=== PATIENT | female | born 1950 | race Caucasian/White ===

== ENCOUNTER 2020-08-03 17:08 | Emergency (ER) | payer OTHER ==
[~2020-08-03] VITALS: Ht 162.6 cm; Wt 99.8 kg
[2020-08-03 17:08] VITALS: BP_SYST 151
[2020-08-03] MEDS ORDERED: NACL 0.9% 1,000 ML IV ONE (17:30)
[2020-08-03] MEDS ORDERED: GLU500 PO (17:41)
[2020-08-03] MEDS ORDERED: OMEP20CA15 PO (17:41)
[2020-08-03] MEDS ORDERED: METO50TA7 PO (17:41)
[2020-08-03] MEDS ORDERED: PRO20 PO (17:41)
[2020-08-03] MEDS ORDERED: AMLO5TAB4 PO (17:41)
[2020-08-03] MEDS ORDERED: ACET1TAB23 PO (17:41)
[2020-08-03] MEDS ORDERED: DICL100G19 TP (17:41)
[2020-08-03] MEDS ORDERED: HYDR25TA4 PO (17:41)
[2020-08-03] MEDS ORDERED: LIP20 PO (17:41)
[2020-08-03 18:00] LABS: BILIRUBIN,URINE 1+ (NEGATIVE); BLOOD, URINE NEGATIVE (NEGATIVE); COLOR,URINE ORANGE (YELLOW); GLUCOSE,URINE NEGATIVE (NEGATIVE); KETONES,URINE TRACE (NEGATIVE); LEUKOCYTE ESTERASE ,URINE NEGATIVE (NEGATIVE); NITRITE, URINE NEGATIVE (NEGATIVE); PROTEIN URINE TRACE (NEGATIVE)
[2020-08-03 18:05] LABS: CLARITY/URINE HAZY (CLEAR)
[2020-08-03 18:16] LABS: BACTERIA,URINE FEW /HPF (None Seen); RBC,URINE 0-3 /HPF (0-3); WBC,URINE 0-3 /HPF (0-3)
[2020-08-03 18:17] LABS: HYALINE CASTS, URINE 0-10 /LPF (None Seen); MUCUS,URINE 1+ /LPF (None Seen)
[2020-08-03 18:26] LABS: BASOPHILS # (AUTO) 0.1 K/uL (0.0-0.2); BASOPHILS % (AUTO) 0.9 % (0.0-2.0); EOSINOPHILS # (AUTO) 0.5 K/uL (0.0-0.4); HEMATOCRIT 34.6 % (36-48); HEMOGLOBIN 11.8 g/dL (12.0-16.0); LYMPHOCYTES # (AUTO) 1.5 K/uL (1.0-5.5); LYMPHOCYTES % (AUTO) 12.3 % (20.5-51.5); MEAN CORPUSCULAR HEMOGLOBIN 31 pg (27-31); MEAN CORPUSCULAR HGB CONC 34 % (32-36); MEAN CORPUSCULAR VOLUME 90 fL (79.0-98.0); MONOCYTES % (AUTO) 8.4 % (1.7-9.3); NEUTROPHILS # (AUTO) 8.9 K/uL (1.8-7.7); NEUTROPHILS % (AUTO) 74.4 % (40.0-70.0); PLATELET COUNT (AUTO) 247 K/uL (130-430); RED BLOOD CELL COUNT(AUTO) 3.85 MIL/uL (4.2-6.2); WHITE BLOOD COUNT (AUTO) 11.9 K/uL (4.8-10.8)
[2020-08-03 18:37] LABS: ACETONE, SERUM NEGATIVE (NEGATIVE)
[2020-08-03 18:38] LABS: ANION GAP 12 (5-15); CALCIUM 8.8 mg/dL (8.4-11.0); CHLORIDE 95 mmol/L (98-107); CREATININE 0.98 mg/dL (0.55-1.30); GLUCOSE 272 mg/dL (70-99); POTASSIUM 3.3 mmol/L (3.5-5.1); SODIUM SERUM 133 mmol/L (136-145); UREA NITROGEN, BLOOD 13 mg/dL (8-21)
[2020-08-03 18:42] LABS: INR 1.1 (0.8-1.2); PROTHROMBIN TIME 10.9 SECS (9.5-12.5)
[2020-08-03 18:44] LABS: ALBUMIN 2.4 g/dL (3.4-4.8); ASPARTATE AMINOTRANSFERASE 19 U/L (10-37); TOTAL BILIRUBIN 0.8 mg/dL (0.0-1.0)
[2020-08-03 18:54] LABS: ALANINE AMINOTRANSFERASE 14 U/L (12-78)
[2020-08-03] MEDS ORDERED: ALPR0.25 PO (18:57)
[2020-08-03 19:27] VITALS: BP_SYST 140
== END 2020-08-03 19:27 | disposition home or self-care (01) ==
LOC: SED 17:08
DX: F32.9 Major depressive disorder, single episode, unspecified (principal); R53.1 Weakness; M25.571 Pain in right ankle and joints of right foot; E11.9 Type 2 diabetes mellitus without complications; Z79.84 Long term (current) use of oral hypoglycemic drugs; Z79.899 Other long term (current) drug therapy
CPT/HCPCS: 36415; 71045; 73610; 80053; 81000; 82009; 82550; 83605; 84484; 85025; 85610; 85730; 93005; 96360; 99285; J7030